=== PATIENT | male | born 1955 ===

== ENCOUNTER 2022-05-22 17:41 | Inpatient (IN) | payer OTHER ==
[2022-05-25] MEDS ORDERED: CHILDREN'S ASPI81 MG (12:57)
[2022-05-25] MEDS ORDERED: EZALLOR SPRINKLE5 MG (12:57)
[2022-05-25] MEDS ORDERED: AMLODIPINE-OLM1 EAC2 (12:57)
[2022-05-25] MEDS ORDERED: SINGULAIR10 MG (12:58)
[2022-05-27] MEDS ORDERED: KETOCONAZOLE15 GM (14:18)
[2022-05-27] MEDS ORDERED: PANADOL EXTRA500 MG (14:18)
[2022-05-27] MEDS ORDERED: DICLOFENAC POTA50 MG (14:18)
[2022-05-27] MEDS ORDERED: AMLODIPINE-VAL1 EAC2 (14:18)
[2022-05-30] MEDS ORDERED: ULTRAM50 MG PO (11:44)
[2022-05-30] MEDS ORDERED: INTESTINEX680 M1 PO (11:45)
[2022-05-30] MEDS ORDERED: NEURONTIN300 MG PO (11:45)
== END 2022-05-30 13:44 | disposition home or self-care (01) | DRG 331 ==
LOC: SURG 05-27 10:30 → MEDJ 05-27 11:57 → O/R 05-27 11:57 → SURG 05-27 14:00 → MEDJ 05-27 20:07 → SURH 05-28 16:20
PROVIDERS: ADMIT Surgery; ATTEND Surgery
PROC: 0DBP4ZZ Excision of Rectum, Percutaneous Endoscopic Approach (ICD-10-PCS; 2022-05-27)
PROC: 07BB4ZZ Excision of Mesenteric Lymphatic, Percutaneous Endoscopic Approach (ICD-10-PCS; 2022-05-27)
PROC: 0DJD8ZZ Inspection of Lower Intestinal Tract, Via Natural or Artificial Opening Endoscopic (ICD-10-PCS; 2022-05-27)
PROC: 0DTN4ZZ Resection of Sigmoid Colon, Percutaneous Endoscopic Approach (ICD-10-PCS; principal; 2022-05-27 14:00)
DX: C19 Malignant neoplasm of rectosigmoid junction (principal); R59.0 Localized enlarged lymph nodes; K74.00 Hepatic fibrosis, unspecified; K66.0 Peritoneal adhesions (postprocedural) (postinfection); Z20.822 Contact with and (suspected) exposure to COVID-19